=== PATIENT | female | born 1950 | race Caucasian/White ===

== ENCOUNTER 2021-03-04 07:28 | Day surgery (SDC) | payer MEDICARE ==
[~2021-03-04] VITALS: Ht 167.6 cm; Wt 75.4 kg
[~2021-03-04 07:28] MED LIST: AMLO5TAB4 PO; ASPI81TA45 PO; BUPR150T73 PO; DONE10TA56 PO; LATA2.5D4 EACHEYE; METO5TAB57 PO; MORP30TA PO; QUET100T4 PO
[2021-03-04] MEDS ORDERED: ONABOTULINUMTOXINA 100 UNITS IM ONE (08:00)
[2021-03-04] MEDS ORDERED: LACTATED RINGERS 1,000 ML IV SCH (08:30)
[2021-03-04] MEDS ORDERED: CHLORHEXIDINE 15 ML UDC PO ONE (08:30)
[2021-03-04] MEDS ORDERED: PROPOFOL 10 MG/ML, 50ML ONE (09:32)
== END 2021-03-04 11:50 | disposition home or self-care (01) ==
LOC: OUT 07:28
PROVIDERS: ATTEND Internal Medicine
DX: K31.84 Gastroparesis (principal); K31.1 Adult hypertrophic pyloric stenosis; Z20.822 Contact with and (suspected) exposure to COVID-19; Z79.899 Other long term (current) drug therapy; Z88.0 Allergy status to penicillin
CPT/HCPCS: 43236; 43245; 87635; 93005; C1725; J2704; J7120